=== PATIENT | male | born 1990 | race Caucasian/White ===

== ENCOUNTER 2024-07-01 12:57 | Emergency (ER) | payer OTHER, SELFPAY ==
[2024-07-01 14:10] VITALS: BP 126/70; PULSE 78; RESP 18; TEMP 36.9; O2SAT 99; BMI 25.7
--- NOTE | 2024-07-01 14:17 | XR_ITS ---
Examination: PA chest single view Technique: Upright PA chest single view Exam date and time: July 01, 2024 1425 hrs. Indications: Onset chest pain today. Findings: Normal heart size Lungs are clear The osseous structures are intact Impression: No active disease
--- NOTE | 2024-07-01 14:18 | PD.EDADULT ---
ED General RME/HPI General Chief complaint: Abdominal Pain Stated complaint: ABDOMINAL PAIN Time Seen by Provider: 07/01/24 13:07 Arrival date/time: 07/01/24 12:57 RME / HPI RME / HPI narrative: 33-year-old male patient came in for evaluation regarding right-sided chest pain. Onset of symptoms since yesterday as right-sided chest pain, described as dull ache, severity mild. After patient was vomiting 2 days ago. Patient denies any fever denies any cough denies any other complaints no medication was taken prior to arrival. Related Data Previous Rx's ?Medication ?Instructions ?Recorded lorazepam 1 mg tablet (Ativan) 1 mg PO QHSPRN PRN sleep #7 tabs 09/08/19 cephalexin 500 mg capsule 500 mg PO BID #14 caps 09/25/22 miconazole nitrate 2 % topical 1 applic topical BID #85 grams 09/25/22 powder (Athlete's Foot) ibuprofen 600 mg tablet 600 mg PO Q6H #30 tabs 04/15/23 ibuprofen 800 mg tablet 800 mg PO TID PRN pain #30 tabs 07/01/24 Allergies Allergy/AdvReac Type Severity Reaction Status Date / Time No Known Allergies Allergy Verified 04/25/24 12:04 Review of Systems Review of Systems Narrative Review of Systems: Review of system reviewed and within normal limits except mentioned in HPI ED Exam Narrative Physical exam: VITAL SIGNS: Reviewed. GENERAL APPEARANCE: Alert and interactive, follows commands, no acute distress, HEAD AND FACE: Non-traumatic. ENT: PERRL, pink conjunctivitis, eyelid no trauma, Mucous membrane moist. NECK: Supple, nontender, no nuchal rigidity. CHEST: No tenderness, no crepitus, no paradoxical movement, no retractions. LUNGS: Clear, well ventilated, symmetric, no rales, no wheezing, no ronchi, no stridor, good breath sounds bilaterally. HEART: Regular rate, regular rhythm, no murmur, no gallops. ABDOMEN: Soft, positive bowel sounds, nondistended, no guarding, nontender, no rebound, no masses, RECTAL: Deferred. GENITAL: Deferred. NEUROLOGICAL: Gross motor function intact sensory function intact, Appropriate for age. MUSCULOSKELETAL: low back nontender, full range of motion. EXTREMITIES: Nontender, full range of motion. SKIN: Color pink, dry, no rash, no lacerations, no abrasions, no contusions. LYMPHATICS: Deferred. Course Quality Measures none Orders Category Date Time Status XR chest 2V Stat Exams 07/01/24 14:17 Completed Vital Signs Vital signs: Vital Signs Temperature 98.5 F 07/01/24 14:10 Pulse Rate 78 07/01/24 14:10 Respiratory Rate 18 07/01/24 14:10 Blood Pressure 126/70 07/01/24 14:10 Pulse Oximetry (%) 99 07/01/24 14:10 Oxygen Delivery Method Room Air 07/01/24 14:10 MDM Patient data External records reviewed:: None Clinical information provided by:: patient Social determinants that could affect healthcare access:: none Patient has the following chronic illnesses:: None How is presenting disease/condition affected by chronic disease/condition?: no chronic disease Evaluation data The following diagnostics were reviewed and interpreted by me:: radiology exam(s) Lab and/or radiology exams considered but not ordered:: None Interpretation Summary: I personally reviewed and interpreted the x-ray of this patient. There is no acute abnormalities found, no infiltrates no pneumothorax no hemothorax normal chest x-ray. Review of other structures was without significant abnormal findings also. I additionally reviewed the radiologist report and agree with the interpretation. Medications Medications considered but not ordered:: None Medication administrations:: None Consultations Consultation(s) initiated? (list below): No Diagnosis Differential Diagnosis ED Complaint MDM: Chest pain, aspiration pneumonia, pneumothorax Most likely diagnosis given after review of the tests above:: Chest pain, noncardiac Admission Indicated Admission indicated?: not indicated Explain why admission is indicated or not indicated:: Stable Admission Request Was there a request for admission?: No Disposition Plan Disposition Plan: Discharge Discharge Attestation Discharge Attestation: The patient was given an opportunity to ask questions and understood the discharge instructions. Discharge instructions specifically effects, indications for sooner follow up or return to the emergency department, and the expected course of current diagnosis. Patient condition: Stable Medical Decision Making MDM Narrative MDM Narrative: 33 year-old male patient came in for evaluation regarding right-sided chest pain. Onset of symptoms since yesterday as right-sided chest pain, described as dull ache, severity mild. After patient was vomiting 2 days ago. Patient denies any fever denies any cough denies any other complaints no medication was taken prior to arrival. Differential Diagnosis Differential Diagnosis: Chest pain, aspiration pneumonia, pneumothorax Discharge Plan Plan Patient Disposition: HOME (Self Care) Disposition Comment: Stable Prescriptions/Referrals Prescriptions/Med Rec: New ibuprofen 800 mg tablet 800 mg PO TID PRN (Reason: pain) Qty: 30 0RF No Action lorazepam [Ativan] 1 mg tablet 1 mg PO QHSPRN PRN (Reason: sleep) Qty: 7 0RF cephalexin 500 mg capsule 500 mg PO BID Qty: 14 0RF miconazole nitrate [Athlete's Foot] 2 % powder 1 applic topical BID Qty: 85 0RF ibuprofen 600 mg tablet 600 mg PO Q6H Qty: 30 0RF Referrals: Darrick Byrd MD [Primary Care Provider] - In 1 week Problem List Clinical Impression: Chest pain Patient/Caregiver Discharge Instructions Discharge Activity: activity as tolerated Education Materials: ED Chest Pain, Noncardiac Additional Instructions: Thank you for the opportunity for serving you today. You are stable for discharged . You are advised to: Follow-up with your PCP in 1 to 2 days Return to ED for worsening of symptoms Increase oral fluids Take medication as prescribed Print Language: Cook Islander Stand Alone Forms: Anna Award Info., Patient Portal Info Letter PA/DEVIN Supervising Physician NICCI/DEVIN Supervising Physician: MD Vikash
[2024-07-01 16:13] VITALS: BP 116/76; PULSE 72; RESP 19; TEMP 36.8; O2SAT 100
== END 2024-07-01 16:56 | disposition home or self-care (01) ==
PROVIDERS: Emergency Provider Emergency Medicine; PCP Family Medicine
DX: R07.89 Other chest pain (principal)
CPT/HCPCS: 71046; 99283

== ENCOUNTER 2025-07-20 15:38 | Emergency (ER) | payer MEDICARE, OTHER, SELFPAY ==
[2025-07-20 15:55] VITALS: PULSE 112; RESP 16; O2SAT 97
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
[2025-07-20 17:45] LABS: Basophils # (Auto) 0.0 Thou/mm3 (0.0-0.2); Basophils % (Auto) 0 % (0-2.5); Eosinophils # (Auto) 0.0 Thou/mm3 (0.0-0.5); Eosinophils % (Auto) 0 % (0-10); Hematocrit 43.1 % (41.0-53.0); Hemoglobin 15.1 g/dL (13.5-16.0); Immature Granulocytes Auto 0.08 Thou/mm3 (0.00-0.00); Lymphocytes # (Auto) 1.9 Thou/mm3 (1.0-4.8); Lymphocytes % (Auto) 10 % (10-50); Mean Corpuscular HGB Conc 35.0 g/dl (31.0-37.0); Mean Corpuscular Hemoglobin 31.4 pg (25.0-35.0); Mean Corpuscular Volume 90 fL (80-100); Monocytes # (Auto) 1.4 Thou/mm3 (0.0-0.8); Monocytes % (Auto) 7 % (0-12); Neutrophils # (Auto) 15.3 Thou/mm3 (1.8-7.7); Neutrophils % (Auto) 82 % (37-80); Nucleated Red Blood Cell # 0.00 Thou/mm3 (0.00-0.00); Nucleated Red Blood Cell % 0 /100 WBC (0); Platelet Count 384 Thou/mm3 (140-440); RDW Standard Deviation 47.5 fL (35.1-43.9); Red Blood Count 4.81 Miln/mm3 (4.50-5.90); White Blood Count 18.7 Thou/mm3 (3.8-10.6)
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
[2025-07-20 18:16] LABS: Alanine Aminotransferase 30 U/L (10-49); Albumin, Serum 5.2 gm/dL (3.5-5.0); Albumin/Globulin Ratio 1.5 (1.2-2.2); Alcohol, Blood Medical < 3.0 mg/dL (0-10.0); Alkaline Phosphatase 80 U/L (46-116); Anion Gap 11 (7-16); Aspartate Amino Transferase 24 U/L (0-34); BUN/Creatinine Ratio 12 Ratio (12-20); Bilirubin,Total 1.1 mg/dL (0.3-1.2); Blood Urea Nitrogen 12 mg/dL (9-23); Calcium 9.8 mg/dL (8.3-10.6); Calcium (Corrected) 9.8 mg/dL (8.5-10.1); Carbon Dioxide 27.4 mMol/L (20.0-31.0); Chloride 105 mMol/L (98-107); Creatinine (Component) 1.0 mg/dL (0.6-1.3); Globulin 3.5 gm/dL (2.3-3.5); Glucose 161 mg/dL (74-106); Osmolality,Calculated 287 (275-295); Potassium 4.1 mMol/L (3.4-5.1); Sodium 143 mMol/L (136-145); Total Protein 8.7 gm/dL (5.7-8.2); eGFR > 60 See Note
--- NOTE | 2025-07-20 18:42 | PC.NURSE ---
PT BACK IN ER.
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
[2025-07-21 01:47] LABS: Basophils # (Auto) 0.0 Thou/mm3 (0.0-0.2); Basophils % (Auto) 0 % (0-2.5); Eosinophils # (Auto) 0.1 Thou/mm3 (0.0-0.5); Eosinophils % (Auto) 1 % (0-10); Hematocrit 40.2 % (41.0-53.0); Hemoglobin 13.8 g/dL (13.5-16.0); Immature Granulocytes Auto 0.06 Thou/mm3 (0.00-0.00); Lymphocytes # (Auto) 1.8 Thou/mm3 (1.0-4.8); Lymphocytes % (Auto) 11 % (10-50); Mean Corpuscular HGB Conc 34.3 g/dl (31.0-37.0); Mean Corpuscular Hemoglobin 31.1 pg (25.0-35.0); Mean Corpuscular Volume 91 fL (80-100); Monocytes # (Auto) 1.5 Thou/mm3 (0.0-0.8); Monocytes % (Auto) 9 % (0-12); Neutrophils # (Auto) 13.0 Thou/mm3 (1.8-7.7); Neutrophils % (Auto) 79 % (37-80); Nucleated Red Blood Cell # 0.00 Thou/mm3 (0.00-0.00); Nucleated Red Blood Cell % 0 /100 WBC (0); Platelet Count 359 Thou/mm3 (140-440); RDW Standard Deviation 47.3 fL (35.1-43.9); Red Blood Count 4.44 Miln/mm3 (4.50-5.90); White Blood Count 16.6 Thou/mm3 (3.8-10.6)
[2025-07-21 02:00] LABS: INR 1.0 (0.9-1.3); Prothrombin Time 11.1 Seconds (9.0-12.2)
[2025-07-21 02:15] LABS: Acetaminophen < 2.0 mcg/mL (10.0-20.0); Free T4 (Free Thyroxine) 1.63 ng/dL (0.89-1.76); Salicylate < 3.0 mg/dL; Thyroid Stimulating Hormone 1.20 uIU/mL (0.55-4.78)
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
[2025-07-21 12:12] VITALS: BP 111/80; PULSE 93; RESP 19; TEMP 36.3; O2SAT 98
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
== END 2025-07-21 12:13 | disposition home or self-care (01) ==
PROVIDERS: Emergency Medicine; Emergency Provider Family Medicine
DX: R41.82 Altered mental status, unspecified (principal); S80.02XA Contusion of left knee, initial encounter; F29 Unspecified psychosis not due to a substance or known physiological condition; J32.0 Chronic maxillary sinusitis; M54.2 Cervicalgia; S02.2XXA Fracture of nasal bones, initial encounter for closed fracture; F12.10 Cannabis abuse, uncomplicated; V03.10XA Pedestrian on foot injured in collision with car, pick-up truck or van in traffic accident, initial encounter
CPT/HCPCS: 36415; 70450; 71260; 72125; 74177; 80053; 80307; 80320; 80329; 81001; 84439; 84443; 85025; 85610; 96127; 99283; A4649; Q9967; A9270; G0480